=== PATIENT | female | born 1985 | race Caucasian/White ===

== ENCOUNTER → 2023-10-21 09:00 | Outpatient (BNVA) | payer BC, SELFPAY | PROVIDERS: Visit Provider Nurse Practitioner Women's Health | DX: Z12.4 Encounter for screening for malignant neoplasm of cervix (principal); Z01.419 Encounter for gynecological examination (general) (routine) without abnormal findings | CPT/HCPCS: 87624 ==

== ENCOUNTER → 2024-10-10 08:34 | Outpatient (BNVA) | payer BC, SELFPAY | PROVIDERS: Visit Provider Nurse Practitioner Women's Health | DX: N83.292 Other ovarian cyst, left side (principal) | CPT/HCPCS: 76830 ==